=== PATIENT | female | born 1985 | race Caucasian/White ===

== ENCOUNTER 2017-04-17 15:25 | Outpatient (CLI) | payer OTHER | END 2017-04-17 15:26 | LOC: POD 15:25 | PROVIDERS: ATTEND Podiatrist | DX: M20.22 Hallux rigidus, left foot (principal); L84 Corns and callosities ==

== ENCOUNTER 2018-01-04 11:46 | Outpatient (CLI) | payer OTHER | END 2018-01-04 11:47 | LOC: RT 11:46 | PROVIDERS: ATTEND Family Medicine | DX: R00.0 Tachycardia, unspecified (principal) | CPT/HCPCS: 93225 ==

== ENCOUNTER 2019-09-30 11:56 | Outpatient (CLI) | payer OTHER ==
--- NOTE | 2019-09-30 13:25 | Diagnostic Imaging Report ---
PATIENT MR#: [id number] PATIENT PATIENT NAME: LARISA PERDUE DATE OF : 1985 REFERRING PHYSICIAN: Nelia Hernandez EXAM DATE: 09/30/2019 ACCESSION NUMBER: [id number] EXAM DESCRIPTION: ABD COMPLETE Abdomen KUB Indication of abdominal pain and constipation Findings: Single view of the abdomen without prior show scattered: Content within the ascending colon. There is no bowel obstruction or free intraperitoneal air. Impression: No obstruction Read by: Dr. Robbi Palomares Transcribed by: Transcribed Date: Electronically signed by: Dr. Robbi Palomares Date signed: 09/30/2019 1:24:34 PM
== END 2019-09-30 12:06 ==
LOC: RAD 11:56
PROVIDERS: ATTEND Nurse Practitioner Family
DX: K62.89 Other specified diseases of anus and rectum (principal); K59.00 Constipation, unspecified
CPT/HCPCS: 74019